=== PATIENT | female | born 1990 | race Caucasian/White ===

== ENCOUNTER 2018-04-19 19:00 | Emergency (ER) | payer SELFPAY ==
[~2018-04-19] VITALS: Ht 167.6 cm; Wt 58.2 kg
[2018-04-19] MEDS ORDERED: normal saline 1000ML IV soln IVB ONE (20:10)
[2018-04-19] MEDS ORDERED: LORazepam 1 MG tablet PO ONE (20:55)
[2018-04-19 22:01] VITALS: BP 111/62
[2018-04-19] MEDS ORDERED: sulfamethoxazole/trimethoprim DS (800/160mg) tablet PO ONE (22:05)
== END 2018-04-19 23:04 | disposition left against medical advice (07) ==
LOC: ER 19:00
DX: L03.114 Cellulitis of left upper limb (principal); L02.414 Cutaneous abscess of left upper limb; F19.90 Other psychoactive substance use, unspecified, uncomplicated; Z88.0 Allergy status to penicillin; Z88.1 Allergy status to other antibiotic agents
CPT/HCPCS: 71045; 99284; C1751; A6266